=== PATIENT | female | born 1965 | race American Indian/Alaskan Native ===

== ENCOUNTER 2016-03-27 13:35 | Outpatient (CLI) | payer OTHER ==
--- NOTE | 2016-03-27 15:51 | Mammography Report ---
BILATERAL DIGITAL SCREENING MAMMOGRAM : 03/27/16 13:35:00 CLINICAL: Routine screening. COMPARISON:03/20/15 FINDINGS: The breasts are heterogeneously dense, which may obscure small masses.No mass, architectural distortion or suspicious calcifications. IMPRESSION: No mammographic evidence of malignancy. BI-RADS CATEGORY: 1 -- Negative RECOMMENDATION: Routine mammographic screening in one year. COMMENT: Patient follow-up letters are generated by our [employer] application.
== END 2016-03-27 13:36 | disposition home or self-care (01) ==
LOC: SPVWC 13:35
PROVIDERS: ATTEND Obstetrics & Gynecology
DX: Z12.31 Encounter for screening mammogram for malignant neoplasm of breast (principal)
CPT/HCPCS: 77067; G0202

== ENCOUNTER 2017-04-01 09:09 | Outpatient (CLI) | payer OTHER ==
--- NOTE | 2017-04-01 10:26 | Mammography Report ---
Screening mammogram: Routine views demonstrates a heterogeneously dense and symmetrically distributed fibroglandular pattern. A circumscribed 1 cm, noncalcified nodule is identified in the deep superior lateral left breast. The breast pattern is not otherwise unremarkable change from prior exams. CAD used. Impression: Left asymmetry. Recommendation: Spot compression imaging of the left breast and left breast ultrasound. BI-RADS CATEGORY: 0 = Needs additional imaging evaluation ACR BI-RADS MAMMOGRAPHIC CODES: 0 = Needs additional imaging evaluation; 1 = Negative; 2 = Benign; 3 = Probably benign; 4 = Suspicious; 5 = Malignant; 6 = Known biopsy-proven malignancy COMMENT: 1. Dense breast tissue, i.e., adenosis, fibrocystic changes, etc., may obscure an underlying neoplasm. 2. Approximately 10% of cancers are not detected with mammography. 3. A negative mammography report should not delay biopsy if a clinically suspicious mass is present.
== END 2017-04-01 09:10 | disposition home or self-care (01) ==
LOC: SPVWC 09:09
PROVIDERS: ATTEND Obstetrics & Gynecology
DX: Z12.31 Encounter for screening mammogram for malignant neoplasm of breast (principal)
CPT/HCPCS: 77067

== ENCOUNTER 2017-04-16 12:36 | Outpatient (CLI) | payer OTHER ==
--- NOTE | 2017-04-16 14:03 | Ultrasound Report ---
LEFT BREAST ULTRASOUND: 04/16/17 12:36:00 CLINICAL: Abnormal screening mammogram. COMPARISON: 04/01/17 FINDINGS: Targeted ultrasound of the left breast demonstrates a benign cyst at 3 o'clock 3 cm from the nipple measuring 1.0 x 0.8 x 0.6 cm.The cyst is anechoic with a smooth thin wall and correlates with the mammographic finding. IMPRESSION: Benign 1 cm left breast cyst at 3 o'clock. BI-RADS 2 - - Benign RECOMMENDATION: Routine mammographic screening in one year.
--- NOTE | 2017-04-16 15:10 | Mammography Report ---
LEFT DIGITAL DIAGNOSTIC MAMMOGRAM : 04/16/17 12:36:00 CLINICAL: Recalled for asymmetry. COMPARISON:04/01/17 screening FINDINGS: Spot compression views were performed and demonstrated persistent oval upper outer circumscribed mass or cyst. Targeted ultrasound of the left breast demonstrated an oval benign cyst at 3 o'clock 3 cm from the nipple measuring 1.0 x 0.8 x 0.6 cm. The cyst is anechoic with a smooth thin wall and correlates with the mammographic density. IMPRESSION: Benign 1 cm cyst at 3 o'clock left breast. BI-RADS CATEGORY: 2 - - Benign RECOMMENDATION: Routine mammographic screening in one year. ACR BI-RADS MAMMOGRAPHIC CODES: 0 = Needs additional imaging evaluation; 1 = Negative; 2 = Benign; 3 = Probably benign; 4 = Suspicious; 5 = Malignant; 6 = Known biopsy-proven malignancy COMMENT: 1. Dense breast tissue, i.e., adenosis, fibrocystic changes, etc., may obscure an underlying neoplasm. 2. Approximately 10% of cancers are not detected with mammography. 3. A negative mammography report should not delay biopsy if a clinically suspicious mass is present. COMMENT: Patient follow-up letters are generated via our [employer] application.
== END 2017-04-16 12:37 | disposition home or self-care (01) ==
LOC: SPVWC 12:36
PROVIDERS: ATTEND Obstetrics & Gynecology
DX: N60.02 Solitary cyst of left breast (principal)

== ENCOUNTER 2018-04-08 09:04 | Outpatient (CLI) | payer OTHER ==
--- NOTE | 2018-04-08 14:43 | Mammography Report ---
BILATERAL DIGITAL SCREENING MAMMOGRAM with CAD : 04/08/18 09:04:00 CLINICAL: Routine screening. COMPARISON:04/16/17 and 04/01/17 FINDINGS: The breasts are heterogeneously dense, which may obscure small masses.The previously confirmed 1 cm left benign cyst at 3 o'clock is unchanged. No mass, architectural distortion or suspicious calcifications. IMPRESSION: No mammographic evidence of malignancy. BI-RADS CATEGORY: 2 -- Benign RECOMMENDATION: Routine mammographic screening in one year. COMMENT: Patient follow-up letters are generated by our [employer] application.
== END 2018-04-08 09:05 | disposition home or self-care (01) ==
LOC: SPVWC 09:04
PROVIDERS: ATTEND Family Medicine
DX: Z12.31 Encounter for screening mammogram for malignant neoplasm of breast (principal)
CPT/HCPCS: 77067

== ENCOUNTER 2019-04-11 08:43 | Outpatient (CLI) | payer OTHER ==
--- NOTE | 2019-04-11 12:48 | Mammography Report ---
DIGITAL SCREENING MAMMOGRAM WITH CAD, 04/11/2019 INDICATION: Routine screening mammography. TECHNIQUE: Digital bilateral 2D mammography was obtained in the craniocaudal and mediolateral obliq ue projections. This examination was interpreted with the benefit of Computer-Aided Detection analysi s. COMPARISON: 04/08/2018 FINDINGS: Breast Density: The breasts are heterogeneously dense, which may obscure small masses. A right retroareolar asymmetry on the CC view requires additional imaging. No architectural distortio n or suspicious calcifications of the right breast. There is no evidence of dominant mass, suspicious calcifications or architectural distortion in the left breast. IMPRESSION: Right asymmetry requiring additional imaging. Recommend recall for right lateral and spot compression CC views and right breast ultrasound if needed. Follow up recommendation: Special View: Spot Category 0: Incomplete. Needs additional imaging evaluation and/or prior mammograms for comparison. A "normal" or negative report should not discourage follow up or biopsy of a clinically significant f inding. A written summary of these findings will be mailed to the patient. The patient will be entered into a mammography reporting system which will generate a reminder letter for the patient's next appointmen t at the appropriate interval. The [employer] recommends yearly mammograms starting at age 40 and continuing as l windy as a woman is in good health. Breast MRI is recommended for women with an approximate 20-25% or greater lifetime risk of breast cancer, including women with a strong family history of breast or ova saba cancer or who have been treated for Hodgkin's disease. Signer Name: Jose Guadalupe England MD Signed: 04/11/2019 12:43 PM Workstation Name: [id number]
== END 2019-04-11 08:44 | disposition home or self-care (01) ==
LOC: SPVWC 08:43
PROVIDERS: ATTEND Family Medicine
DX: Z12.31 Encounter for screening mammogram for malignant neoplasm of breast (principal)
CPT/HCPCS: 77067

== ENCOUNTER 2019-04-27 08:23 | Outpatient (CLI) | payer OTHER ==
--- NOTE | 2019-04-27 09:03 | Mammography Report ---
DIGITAL DIAGNOSTIC MAMMOGRAM WITH CAD, 04/27/2019 INDICATION: Recall for right asymmetry. ABNORMAL MAMMOGRAM TECHNIQUE: Digital right mammographic imaging was performed. Spot compression views were obtained. This examination was interpreted with the benefit of Computer-aided Detection analysis. COMPARISON: 04/11/2019 FINDINGS: Breast Density: The breasts are heterogeneously dense, which may obscure small masses. Lateral medial and spot compression CC views were performed and are negative. Satisfactory effacement of asymmetry on spot compression. IMPRESSION: No mammographic evidence of malignancy. Follow up recommendation: Routine yearly BI-RADS Category 1: Negative. A "normal" or negative report should not discourage follow up or biopsy of a clinically significant f inding. A written summary of these findings will be mailed to the patient. The patient will be entered into a mammography reporting system which will generate a reminder letter for the patient's next appointmen t at the appropriate interval. According to the [employer], yearly mammograms are recommended starting at age 40 and continuing as long as a woman is in good health. Breast MRI is recommended for women with an christ roximately 20-25% or greater lifetime risk of breast cancer, including women with a strong family his tory of breast or ovarian cancer and women who have been treated for Hodgkin's disease. Signer Name: Jose Guadalupe England MD Signed: 04/27/2019 8:58 AM Workstation Name: [id number]
== END 2019-04-27 08:24 | disposition home or self-care (01) ==
LOC: SPVWC 08:23
DX: R92.8 Other abnormal and inconclusive findings on diagnostic imaging of breast (principal)

== ENCOUNTER 2020-04-30 10:27 | Outpatient (CLI) | payer OTHER ==
--- NOTE | 2020-04-30 12:33 | Mammography Report ---
DIGITAL SCREENING MAMMOGRAM WITH CAD, 04/30/2020 INDICATION: Routine screening mammography. TECHNIQUE: Digital bilateral 2D mammography was obtained in the craniocaudal and mediolateral obliq ue projections. This examination was interpreted with the benefit of Computer-Aided Detection analysi s. COMPARISON: 04/11/2019 FINDINGS: Breast Density: There are scattered areas of fibroglandular density. There is no evidence of dominant mass, suspicious calcifications or architectural distortion in eithe r breast. IMPRESSION: Follow up recommendation: Routine yearly BI-RADS Category 1: Negative. A "normal" or negative report should not discourage follow up or biopsy of a clinically significant f inding. A written summary of these findings will be mailed to the patient. The patient will be entered into a mammography reporting system which will generate a reminder letter for the patient's next appointmen t at the appropriate interval. The [employer] recommends yearly mammograms starting at age 40 and continuing as l windy as a woman is in good health. Breast MRI is recommended for women with an approximate 20-25% or greater lifetime risk of breast cancer, including women with a strong family history of breast or ova saba cancer or who have been treated for Hodgkin's disease. Signer Name: Martin Pozo MD Signed: 04/30/2020 12:28 PM Workstation Name: [id number]
== END 2020-04-30 10:28 | disposition home or self-care (01) ==
LOC: SPVWC 10:27
DX: Z12.31 Encounter for screening mammogram for malignant neoplasm of breast (principal)
CPT/HCPCS: 77067

== ENCOUNTER 2021-05-01 09:00 | Outpatient (CLI) | payer OTHER ==
--- NOTE | 2021-05-03 08:47 | Mammography Report ---
DIGITAL SCREENING MAMMOGRAM WITH CAD, 05/01/2021 CLINICAL INFORMATION / INDICATION: Routine screening mammography. SCREENING MAMMO TECHNIQUE: Digital bilateral 2D mammography was obtained in the craniocaudal and mediolateral obliqu e projections. This examination was interpreted with the benefit of Computer-Aided Detection analysis . COMPARISON: 04/30/2020 and 04/11/2019 FINDINGS: Breast Density: There are scattered areas of fibroglandular density. No dominant mass, suspicious calcifications, or architectural distortion in either breast. IMPRESSION: No mammographic evidence of malignancy. Follow up recommendation: Routine yearly BI-RADS Category 1: NEGATIVE A "normal" or negative report should not discourage follow up or biopsy of a clinically significant f inding. A written summary of these findings will be mailed to the patient. The patient will be entered into a mammography reporting system which will generate a reminder letter for the patient's next appointmen t at the appropriate interval. The [employer] recommends yearly mammograms starting at age 40 and continuing as l windy as a woman is in good health. Breast MRI is recommended for women with an approximate 20-25% or greater lifetime risk of breast cancer, including women with a strong family history of breast or ova saba cancer or who have been treated for Hodgkin's disease. Signer Name: Shant Lester MD Signed: 05/03/2021 8:43 AM Workstation Name: [id number]
== END 2021-05-01 09:01 | disposition home or self-care (01) ==
LOC: SPVWC 09:00
DX: Z12.31 Encounter for screening mammogram for malignant neoplasm of breast (principal)
CPT/HCPCS: 77067